=== PATIENT | male | born 1950 | race Caucasian/White ===

== ENCOUNTER 2023-09-24 07:08 | Day surgery (SDC) | payer OTHER ==
[~2023-09-24] VITALS: Ht 180.3 cm; Wt 108.0 kg
[2023-09-24] VITALS (11 sets, daily range): BP systolic 114–156; BP diastolic 61–103
[~2023-09-24 07:08] MED LIST: AMLO10 PO; ATORVASTATIN CA20 MG PO; GLIP10 PO; HUMULIN N100 UNIT/6 SC; HYDCHL25 PO; LOSA50 PO; METF500 PO; METO50ER PO; OZEMPIC0.25 MG/02 SQ; REVATIO10 MG/1 ML PO; SITA25T2; TAMSULOSIN HCL0.4 M1 PO
--- NOTE | 2023-09-24 10:30 | NUR ---
10CC AIR REMOVED FROM R WRIST TR BAND. -BLEEDING OR SWELLING.
--- NOTE | 2023-09-24 11:52 | NUR ---
R WRIST TR BAND REMOVED AND CLOTH DOT DRSG PLACED. R WRIST SPLINT REAPPLIED. IV REMOVED. PT AND VERBALIZED UNDERSTANDING OF WRITTEN AND VERBAL D/C INST. PT TAKEN OUT OF THE HRT CENTER VIA W/C.
== END 2023-09-24 12:00 | disposition home or self-care (01) ==
LOC: MHTC 07:08
DX: I25.10 Atherosclerotic heart disease of native coronary artery without angina pectoris (principal); I25.84 Coronary atherosclerosis due to calcified coronary lesion; I10 Essential (primary) hypertension; E78.5 Hyperlipidemia, unspecified; E11.9 Type 2 diabetes mellitus without complications; Z79.84 Long term (current) use of oral hypoglycemic drugs; Z79.4 Long term (current) use of insulin; Z79.899 Other long term (current) drug therapy
CPT/HCPCS: 76937; 93458; 99152; 99153; C1769; C1887; C1894; J1644; J2250; J3010; J7030; J7050; Q9967